=== PATIENT | male | born 1940 | race Caucasian/White ===

== ENCOUNTER 2017-07-05 06:34 | Inpatient (IN) | payer OTHER ==
[2017-07-04 10:44] VITALS: BMI 24.3
[2017-07-05] MEDS ORDERED: PROPOFOL 20 ML ONE (07:49)
[2017-07-05] MEDS ORDERED: MIDAZOLAM HCL 2 MG/2 ML SINGLE DOSE VIAL ONE (07:49)
[2017-07-05] MEDS ORDERED: LIDOCAINE HCL/PF 2% SDV 5ML VIAL ONE (07:52)
[2017-07-05] MEDS ORDERED: ceFAZolin SODIUM 1 GM VIAL ONE (08:14)
[2017-07-05] MEDS ORDERED: ceFAZolin SODIUM 1 GM VIAL IVPB ONE (08:17)
[2017-07-05] MEDS ORDERED: DEXAMETHASONE SOD PHOSPHATE 4 MG/1 ML VIAL ONE (08:17)
[2017-07-05] MEDS ORDERED: IBUPROFEN 800 MG/8 ML IJ IVPB PRN (08:47)
--- NOTE | 2017-07-05 08:52 | HP ---
History & Physical Update - History History: No Change - Physical Physical: No Change - Assessment Assessment: No Change - Plan Plan: No Change
[2017-07-05] MEDS ORDERED: DEXTROSE 5%-0.45% SALINE 1,000 ML IV SCH (09:00)
[2017-07-05] MEDS ORDERED: ONDANSETRON 4 MG/2 ML VIAL IVPUSH PRN (09:00)
[2017-07-05] MEDS ORDERED: PROMETHAZINE HCL 25 MG/1 ML VIAL IVPUSH PRN (09:00)
[2017-07-05] MEDS ORDERED: LACTATED RINGERS SOLUTION 1,000 ML IV SCH (09:00)
--- NOTE | 2017-07-05 09:25 | OP ---
DATE OF OPERATION: 07/05/2017 PREOPERATIVE DIAGNOSIS: Bladder tumor. POSTOPERATIVE DIAGNOSIS: Bladder tumor. PROCEDURES: Cystoscopy. Transurethral resection of bladder tumor, large left hemitrigone. ESTIMATED BLOOD LOSS: Minimal. ANESTHESIA: General. ANESTHESIOLOGIST: Naveen De Souza MD SURGEON: Claudy Becerra MD SPECIMEN: Bladder tumor. DRAIN: Andres catheter. PREOPERATIVE INDICATIONS: The patient is a 77-year-old male who presented with gross hematuria. He was found to have a large papillary-appearing tumor over the left hemitrigone. He comes to the OR for resection. OPERATION: The patient was brought to the OR and placed on the table in supine position, given general anesthesia and IV antibiotics, and placed in the modified lithotomy position. The groin was prepped and draped sterilely and a timeout was performed. A cystoscopy was performed. The urethra appeared to be normal. The prostate was very large, hyperemic and obstructive. The bladder had severe trabeculation throughout consistent with long-standing bladder outlet obstruction. Along the left hemitrigone, a large papillary-appearing tumor was seen. This was resected down to its base and the base was fulgurated. The bladder wall appeared to be thinned, but not perforated. Therefore, mitomycin was not given. Good hemostasis was achieved. The specimen was sent off for pathological diagnosis. The bladder was emptied with a Andres catheter which remained for postoperative drainage. Valeria [id number]
[2017-07-05] MEDS: ACETAMINOPHEN 1000 MG/100 ML VIAL (NON FORMULARY) IVPB ONE ×2 (09:45→18:04)
[2017-07-05] MEDS ORDERED: LISINOPRIL 20 MG TABLET (FP) PO ONE (16:35)
--- NOTE | 2017-07-05 16:38 | PN ---
Progress Note (short form) - Note Progress Note: patient in clot retention. Three way haines placed and CBI started. will observe overnight.
[2017-07-05] MEDS ORDERED: HYDROCHLOROTHIAZIDE 12.5 MG CAPSULE (FP) PO SCH (16:45)
[2017-07-05] MEDS: FINASTERIDE 5 MG TABLET (FP) PO SCH (18:03)
[2017-07-05 18:47] LABS: BASOPHIL 0.1 % (0-2.0)
[2017-07-05 18:51] LABS: MCH 29.9 pg (25.7-33.7); MCHC 33.9 g/dl (32.0-35.9); MEAN CELL VOLUME 88.2 fl (80-96); NEUTROPHILS 90.5 % (42.8-82.8); PLATELET COUNT 126 K/MM3 (134-434); RDW 14.3 % (11.9-15.9); WHITE BLOOD COUNT 16.3 K/mm3 (4.0-10.0)
[2017-07-05 19:25] LABS: ANION GAP 11 (8-16); CALCIUM 8.8 mg/dL (8.5-10.1); CO2 25 mmol/L (21-32); CREATININE 1.2 mg/dL (0.7-1.3); GLUCOSE,RANDOM 126 mg/dL (74-106)
--- NOTE | 2017-07-05 19:29 | RAPID ---
Physical Examination Vital Signs: Vital Signs Temperature 97.5 F L 07/05/17 10:08 Pulse Rate 90 07/05/17 13:22 Respiratory Rate 20 07/05/17 13:22 Blood Pressure 135/68 07/05/17 13:22 O2 Sat by Pulse Oximetry (%) 97 07/05/17 09:55 Constitutional: Yes: Calm Eyes: Yes: Conjunctiva Clear, EOM Intact, PERRL HENT: Yes: Atraumatic, Normocephalic. No: Pharyngeal Erythema, Rhinnorhea Neck: Yes: Supple, Trachea Midline. No: Lymphadenopathy, Tenderness Cardiovascular: Yes: Regular Rate and Rhythm, Tachycardia. No: Murmur Respiratory: Yes: Regular, CTA Bilaterally, On Venti-Mask. No: Accessory Muscle Use Gastrointestinal: Yes: Normal Bowel Sounds, Soft Renal/: Yes: Bladder Distention, Haines Present, Hematuria (in haines and at meatus) Extremities: No: Erythema Edema: No Peripheral Pulses WNL: Yes Peripheral Pulses: Left Radial: 2+, Right Radial: 2+, Left Doralis Pedis: 2+, Right Dorsalis Pedis: 2+ Neurological: Yes: Alert, Oriented, Cran Nerves II-XII Intact ...Motor Strength: LUE (5/5 handgrip and bicep flexion), LLE (5/5 hip/knee extension/plantar flexion), RUE (5/5 hand divisional human resources director, biceps flexion), RLE (5/5 hip/ knee extension/plantar flexion) Psychiatric: Yes: Alert, Oriented (to person,place,birthday,date,location, president,situation) Labs: CBC, BMP 07/05/17 18:18 07/05/17 18:18 Rapid Response - Rapid Response Assessment: 77 yr old man s/p TURP this morning. Prior to arrival: Pt was speaking with his , when she looked over his eyes rolled back and he slowly passed out, and she was unable to wake him up. Nurse was called who initiated RR, when assessed by Nurse Cafe Site Attendant (Nan), pt did not have a pulse, code 99 initiated, chest compressions were initiated and patient became responsive right away. On arrival: Pt was awake, alert, appropriately responsive to questions. denied chest pain, sob, difficulty breathing, palpitations, headache. No seizure-like activity. He felt sweaty. physical exam stated above. Recommendations/Interventions: Pt was given IVF bolus. Dr. Isaacs was called and request was made for medicine consult, cardiology consult and transfer to ICU. stat labs for cbc, bmp, trop, and ekg Primary Physician Notified: Claudy Becerra
[2017-07-05] MEDS: DEXTROSE 5%-0.45% SALINE 1,000 ML IV SCH (19:30)
[2017-07-05] MEDS ORDERED: ALPRAZolam 0.25 MG TABLET PO ONE (20:10)
--- NOTE | 2017-07-05 20:25 | CONSULT ---
Consultation: REQUESTING PROVIDER: Dr. Isaacs(urology) CONSULT REQUEST: We have been asked to medically evaluate this patient s/p RR and transfer to ICU. HISTORY OF PRESENT ILLNESS: 77 yr old man with HTN, HLD, BPH, s/p elective TURP due to episodes of veronica hematuria since 1 month. Procedure was uncomplicated, however pt had urinary retention post-procedure, CBI was initiated and he was admitted for further monitoring. A rapid response was initiated when pt became acutely unresponsive while talking to his . She said that they were talking and when she looked over him, had slowly closed his eyes and slumped his head. He did not answer to his name. Appears to be vaso-vagal in nature, as he had a repeat witnessed episode upon transfer to the ICU when there was an obstructing clot in the haines, once flushed, and pain relief provided, patient recovered without difficulty immediately (no post-ictal state) Pmhx: HTN, HLD, BPH Family hx: father to due to stroke at age 83, mother from dementia at age 97, younger sister(4 yrs younger) had a wedge resection of left lung due to nonmalignant carcinoid tumor Social: smoked 2-3cig/day for 1 yr, quit >40 yrs ago, socially drinks, denies drug use Surgical: basal cell carcinoma excised from left ear many years ago, has had a surgery in the past requiring general anesthesia without any adverse reaction. REVIEW OF SYSTEMS: CONSTITUTIONAL: Presemt: intentional weight loss of 3 lbs since february Absent: fever, chills, diaphoresis, generalized weakness, malaise, loss of appetite HEENT: Absent: rhinorrhea, nasal congestion, difficulty swallowing, mouth swelling, visual changes CARDIOVASCULAR: Absent: chest pain, syncope, palpitations, irregular heart rate, lightheadedness , peripheral edema RESPIRATORY: Absent: cough, shortness of breath, GASTROINTESTINAL: Absent: abdominal pain, abdominal distension, nausea, vomiting, diarrhea, constipation, melena, hematochezia GENITOURINARY: Present:genital pain Absent: dysuria, frequency, urgency, hesitancy, hematuria, flank pain MUSCULOSKELETAL: Absent: myalgia, arthralgia, joint swelling, back pain, neck pain SKIN: Absent: rash, itching, pallor ENDOCRINE: Absent: unexplained weight gain, unexplained weight loss, heat intolerance, cold intolerance NEUROLOGIC: Absent: headache, focal weakness or paresthesias, dizziness, seizure, mental status changes, bowel incontinence PHYSICAL EXAMINATION Vital Signs - 24 hr 07/05/17 07/05/17 07/05/17 06:53 08:57 09:10 Temperature 97.5 F L 97.7 F Pulse Rate 70 80 78 Respiratory 18 14 18 Rate Blood Pressure 160/83 148/66 142/71 O2 Sat by Pulse 99 97 99 Oximetry (%) 07/05/17 07/05/17 07/05/17 09:25 09:40 09:55 Temperature Pulse Rate 66 68 76 Respiratory 15 15 16 Rate Blood Pressure 133/52 118/60 130/59 O2 Sat by Pulse 97 98 97 Oximetry (%) 07/05/17 07/05/17 07/05/17 10:08 10:27 13:22 Temperature 97.5 F L Pulse Rate 78 74 90 Respiratory 18 20 20 Rate Blood Pressure 134/61 142/74 135/68 O2 Sat by Pulse Oximetry (%) 07/05/17 16:54 Temperature 98.2 F Pulse Rate 88 Respiratory 18 Rate Blood Pressure 145/72 O2 Sat by Pulse Oximetry (%) GENERAL: Awake, alert, and fully oriented, in no acute distress. HEAD: Normal with no signs of trauma. EYES: Pupils equal, round and reactive to light, extraocular movements intact, sclera anicteric, conjunctiva clear. No lid lag. EARS, NOSE, THROAT: Ears normal, nares patent, oropharynx clear without exudates. Moist mucous membranes. NECK: Normal range of motion, supple without lymphadenopathy, JVD, or masses. LUNGS: Breath sounds equal, clear to auscultation bilaterally. No wheezes, and no crackles. No accessory muscle use. HEART: Regular rate and rhythm, normal S1 and S2 without murmur, rub or gallop. ABDOMEN: Soft, nontender, not distended, normoactive bowel sounds, no guarding, no rebound, no masses. No hepatomegaly or splenomegaly. MUSCULOSKELETAL: Normal range of motion at all joints. No bony deformities or tenderness. No CVA tenderness. UPPER EXTREMITIES: 2+ radial pulses, warm, well-perfused. No cyanosis. No clubbing. Cap refill <2 seconds. No peripheral edema. LOWER EXTREMITIES: 2+ dorsalis pulses, warm, well-perfused. No calf tenderness. No peripheral edema. NEUROLOGICAL: Cranial nerves II-XII intact. Normal speech. PSYCHIATRIC: Cooperative. Good eye contact. Appropriate mood and affect. SKIN: Warm, dry, normal turgor, no rashes or lesions noted. : haines in place with scant blood at meatus, no penile lesions. Laboratory Results - last 24 hr 07/05/17 07/05/17 18:18 18:18 WBC 16.3 H RBC 4.25 Hgb 12.7 Hct 37.5 MCV 88.2 MCH 29.9 MCHC 33.9 RDW 14.3 Plt Count 126 L MPV 12.0 H Neutrophils % 90.5 H Lymphocytes % 5.2 L Monocytes % 4.2 Eosinophils % 0.0 Basophils % 0.1 Platelet Comment Mod giant plts RBC Morphology Appears normal Sodium 136 Potassium 3.7 Chloride 100 Carbon Dioxide 25 Anion Gap 11 BUN 20 H Creatinine 1.2 Random Glucose 126 H Calcium 8.8 Active Medications Generic Name Dose Route Start Last Admin Trade Name Freq PRN Reason Stop Dose Admin Fentanyl 50 mcg 07/05/17 09:00 Sublimaze Injection - IVPUSH 07/08/17 09:01 [id number] PRN PAIN Finasteride 5 mg 07/05/17 16:45 07/05/17 18:03 Proscar - PO 5 mg DAILY ZULEMA Administration Hydrochlorothiazide 12.5 mg 07/05/17 16:45 07/05/17 18:03 Hctz - PO 12.5 mg DAILY ZULEMA Administration Dextrose/Sodium Chloride 1,000 mls @ 125 mls/hr 07/05/17 09:00 07/05/17 18:04 D5-1/2ns - IV Not Given ASDIR ZULEMA Lactated Ringer's 1,000 mls @ 125 mls/hr 07/05/17 09:00 07/05/17 18:04 Lactated Ringers Solution IV Not Given ASDIR ZULEMA Ibuprofen 800 mg 07/05/17 08:47 07/05/17 09:10 Caldolor Injection - IVPB 800 mg Q8H PRN Administration PAIN OR FEVER Phenazopyridine HCl 100 mg 07/05/17 20:15 Pyridium - PO TID ZULEMA Solifenacin 5 mg 07/05/17 20:15 Vesicare - PO DAILY ZULEMA Tamsulosin HCl 0.4 mg 07/06/17 08:30 Flomax - PO DAILY@0830 [facility] Active Medications Finasteride (Proscar -) 5 mg PO DAILY [facility] Last Admin: 07/05/17 18:03 Dose: 5 mg Dextrose/Sodium Chloride (D5-1/2ns -) 1,000 mls @ 125 mls/hr IV ASDIR [facility] Last Admin: 07/05/17 19:30 Dose: 125 mls/hr Ibuprofen (Caldolor Injection -) 800 mg IVPB Q8H PRN PRN Reason: PAIN OR FEVER Last Admin: 07/05/17 09:10 Dose: 800 mg Phenazopyridine HCl (Pyridium -) 100 mg PO TID [facility] Last Admin: 07/06/17 05:53 Dose: 100 mg Solifenacin (Vesicare -) 5 mg PO DAILY [facility] Last Admin: 07/05/17 20:29 Dose: 5 mg Tamsulosin HCl (Flomax -) 0.4 mg PO DAILY@0830 [facility] ASSESSMENT/PLAN: 77 yr old man s/p TURP with post-procedure clot retention and 2 episodes of vaso -vagal syncope admitted to ICU for further monitoring. #Syncope- likely vasovagal due to pain/clot retention/hypovolemia(though BP is elevated), (no focal neurological deficits, no seizure-like activity, no post- ictal phase, no cardiac or pulmonary history) - IVF hydration - bi analyst to r/o arrhythmia/hypotension - trend trop to r/o ACS, thought less likely with no acute changes on EKG, cardio consult appreciated #DANA - likely pre-renal, continue IVF #HTN/tachycardia - hold home diuretics due to DANA, give metoprolol 25mg po if tachycardia(likely due to pain, treat pain first) continues #s/p TURP clot retention - care as per Dr. Isaacs, continue CBI - repeat labs in the am to r/o acute blood loss anemia, resolution of DANA and monitor leukocytosis(suspicious for reactive leucocytosis vs infectious) - pain control with pyridium 100mgp o tid, caldolor 800mg ivpb q8hr prn #BPH - flomax 0.4mg po daily and proscar 5mg po daily #DVT - pt with hematuria, scd's for now Diet: low sodium Dispo: We will continue to follow the patient. Thank you for this consultative opportunity. Visit type - Emergency Visit Emergency Visit: Yes Care time: The patient presented to the Emergency Department on the above date and was hospitalized for further evaluation of their emergent condition. - New Patient This patient is new to me today: Yes Date on this admission: 07/05/17 - Critical Care Critical Care patient: Yes Total Critical Care Time (in minutes): 31 Critical Care Statement: The care of this patient involved high complexity decision making to prevent further life threatening deterioration of the patient 's condition and/or to evaluate & treat vital organ system(s) failure or risk of failure.
[2017-07-05] MEDS: SOLIFENACIN SUCCINATE 5 MG TAB (FP) PO SCH (20:29)
[2017-07-05] MEDS: PHENAZOPYRIDINE HCL 100 MG TABLET (FP) PO SCH ×2 (20:35→21:52)
--- NOTE | 2017-07-05 20:52 | PN ---
Teaching Attending Note Name of Resident: aNfisa Otero ATTENDING PHYSICIAN STATEMENT I saw and evaluated the patient. I reviewed the resident's note and discussed the case with the resident. I agree with the resident's findings and plan as documented. SUBJECTIVE: 77 yo gentleman admitted following uncomplicated TURP performed this morning. Rapid Response called at approximately 1900 after witnessed syncopal episode while patient lying in bed. Pt. seemingly recovered shortly after episode as on arrival patient was answering questions appropriately. Primary physician notified and patient transferred to the ICU for closer monitoring on telemetry and medicine consulted for medical management. Pt. currently denying chest pain, SOB, palpitations, abdominal pain. reports pt. has had similar episodes in past. OBJECTIVE: - Vital Signs Temp: 97.8F BP: 164/98 HR: 108 RR: 20 spO2: 100% on 4L NC - Physical Examination General: Alert, oriented in NAD Neuro: CN grossly intact, DTR's +2/4 in upper and lower extremities, no gross motor or sensory deficits appreciated HEENT: No oropharyngeal lesions appreciated; pupils equal and reactive Neck: No JVD or Thyromegaly CV: Sinus tachycardia ; S1 and S2 Pulm: CTA anteriorly Abd: Soft, NTTP, ND, BS+ ; pulsatile wave appreciated G/U: Andres in place Ext: Nonedematous - Labs / Imaging BUN/Cr: 23/1.5 K+: 3.7 ; Na+ 135 H/H: 12.7/37.5 WBC: 16.3 w/ left shift Troponin Pending - EKG Sinus Tachycardia; No evidence of ischemia ASSESSMENT: Syncope - most consistent with vasovagal etiology Neutrophilic Leukocytosis - presumably reactive in setting of recent procedure and no signs of active infection DANA Hyponatremia - Presumably hypovolemic at this time Bladder Mass s/p TURP Essential HTN PLAN: Transferred to ICU ; Telemetry monitoring Continue IVF hydration with NS overnight If BP continues to be elevated, start Metoprolol PO Obtain EKG and compare to baseline De-escalate supplemental O2 Repeat CBC, CMP in AM to monitor leukocytosis, electrolytes, and DANA F/U pending troponin
--- NOTE | 2017-07-05 21:03 | CONSULT ---
Consult Consult Specialty:: PULMONARY/CRITICAL CARE Referred by:: lCaudy Becerra Reason for Consultation:: syncope - History of Present Illness Chief Complaint: syncope History of Present Illness: Briefly, 77 y/o male with bladder CA, BPH, HTN and HLD presented to the hospital for elective TURBT. Case was uncomplicated, had GA via LMA and only under GA for 1hr. He was d/c from the PACU to the floor. A rapid response was called for syncope, he was found unresponsive and thought to be pulseless. Chest compressions were started, but he quickly regained a mental status, he was probably never pulseless. He was not on tele at the time, so rhythm and HR are unknown. He was completely awake, alert and oriented with no complaints, VS were stable and 12lead EKG was normal. He was admitted to the ICU. - History Source History Provided By: Patient, Medical Record Limitations to Obtaining History: No Limitations - Past Medical History Cardio/Vascular: Yes: HTN, Hyperlipdemia Renal/: Yes: BPH, Cancer, Hematuria Heme/Onc: Yes: Cancer - Past Surgical History Additional Surgical History: Lumbar fusion - Alcohol/Substance Use Hx Alcohol Use: Yes (OCCAS 1-2/WEEK) - Smoking History Smoking history: Never smoked Have you smoked in the past 12 months: No Home Medications - Allergies Allergies/Adverse Reactions: Allergies Allergy/AdvReac Type Severity Reaction Status Date / Time No Known Drug Allergies Allergy Verified 07/05/17 07:04 - Home Medications Home Medications: Ambulatory Orders Finasteride 5 mg PO DAILY 07/04/17 Lisinopril/Hydrochlorothiazide [Lisinopril-Hctz 20-12.5 mg Tab] 1 each PO DAILY 07/04/17 Multivitamin/Iron/Folic Acid [Centrum Adults Tablet] 1 each PO Q48H 07/04/17 Simvastatin 40 mg PO HS 07/04/17 Tamsulosin HCl [Flomax] 0.4 mg PO HS 07/04/17 Family Disease History - Family Disease History Family History: Unremarkable Review of Systems - Review of Systems Constitutional: reports: No Symptoms Eyes: reports: No Symptoms HENT: reports: No Symptoms Neck: reports: No Symptoms Cardiovascular: reports: No Symptoms Respiratory: reports: No Symptoms Gastrointestinal: reports: No Symptoms Genitourinary: reports: Hematuria Breasts: reports: No Symptoms Reported Musculoskeletal: reports: No Symptoms Integumentary: reports: No Symptoms Neurological: reports: No Symptoms Endocrine: reports: No Symptoms Hematology/Lymphatic: reports: No Symptoms Psychiatric: reports: No Symptoms Physical Exam Vital Signs: Vital Signs Temperature 97.8 F 07/05/17 20:00 Pulse Rate 108 H 07/05/17 20:00 Respiratory Rate 20 07/05/17 20:00 Blood Pressure 164/86 07/05/17 20:00 O2 Sat by Pulse Oximetry (%) 100 07/05/17 20:47 Constitutional: Yes: Well Nourished Eyes: Yes: WNL HENT: Yes: WNL Neck: Yes: WNL Cardiovascular: Yes: WNL Respiratory: Yes: WNL Gastrointestinal: Yes: WNL Musculoskeletal: Yes: WNL Extremities: Yes: WNL Edema: No Labs: CBC, BMP 07/05/17 18:18 Problem List - Problems (1) Syncope Code(s): R55 - SYNCOPE AND COLLAPSE (2) HTN (hypertension) Code(s): I10 - ESSENTIAL (PRIMARY) HYPERTENSION (3) BPH (benign prostatic hyperplasia) Code(s): N40.0 - BENIGN PROSTATIC HYPERPLASIA WITHOUT LOWER URINRY TRACT SYMP (4) Bladder cancer Code(s): C67.9 - MALIGNANT NEOPLASM OF BLADDER, UNSPECIFIED (5) Hematuria Code(s): R31.9 - HEMATURIA, UNSPECIFIED Assessment/Plan Bladder CA Hematuria BPH HTN HLD Syncope --> ?vaso-vagal -Tele monitoring -Cardiac workup -Check Sodium --> ?TURP syndrome -Andres per -Restart home meds Transfer to tele in the morning if remains stable and w/u unrevealing Thank you for this interesting consult Brock Cho Pulm/Critical Care ASSOCIATE ENGINEER CCT 45min
[2017-07-05 21:24] LABS: ALBUMIN 3.3 g/dl (3.4-5.0); ANION GAP 13 (8-16); CALCIUM 9.1 mg/dL (8.5-10.1); CO2 22 mmol/L (21-32); CREATININE 1.5 mg/dL (0.7-1.3); GLUCOSE,RANDOM 158 mg/dL (74-106); SGOT/AST 14 U/L (15-37); SGPT/ALT 18 U/L (12-78)
[2017-07-05 21:26] LABS: ALK PHOS 85 U/L (45-117); BILIRUBIN,TOTAL 0.7 mg/dL (0.2-1.0); TOT PROT 5.9 g/dl (6.4-8.2)
[2017-07-05 21:36] LABS: TROPONIN I 0.02 ng/ml (0.00-0.05)
[2017-07-06 00:18] LABS: MCH 29.7 pg (25.7-33.7); MEAN PLT VOLUME 11.3 fl (7.5-11.1); PLATELET COUNT 109 K/MM3 (134-434); RDW 14.3 % (11.9-15.9); WHITE BLOOD COUNT 17.7 K/mm3 (4.0-10.0)
[2017-07-06 00:45] LABS: TROPONIN I 0.03 ng/ml (0.00-0.05)
[2017-07-06] MEDS: PHENAZOPYRIDINE HCL 100 MG TABLET (FP) PO SCH ×3 (05:53→21:57)
[2017-07-06 06:19] LABS: BASOPHIL 0.2 % (0-2.0); EOSINOPHIL 0.1 % (0-4.5); MCH 30.1 pg (25.7-33.7); MCHC 33.6 g/dl (32.0-35.9); MEAN CELL VOLUME 89.5 fl (80-96); MEAN PLT VOLUME 11.8 fl (7.5-11.1); NEUTROPHILS 78.5 % (42.8-82.8); PLATELET COUNT 116 K/MM3 (134-434); RDW 14.4 % (11.9-15.9); WHITE BLOOD COUNT 13.1 K/mm3 (4.0-10.0)
[2017-07-06 06:50] LABS: ANION GAP 9 (8-16); CALCIUM 8.3 mg/dL (8.5-10.1); CO2 28 mmol/L (21-32); CREATININE 1.5 mg/dL (0.7-1.3); GLUCOSE,RANDOM 133 mg/dL (74-106)
[2017-07-06 07:11] LABS: TROPONIN I 0.02 ng/ml (0.00-0.05)
--- NOTE | 2017-07-06 08:16 | CONSULT ---
Consultation: REQUESTING PROVIDER: Mariam CONSULT REQUEST: We have been asked to medically evaluate this patient for syncope. HISTORY OF PRESENT ILLNESS: 77 y/o male with bladder CA, BPH, HTN and HLD presented to the hospital for elective TURP. currently pt continues to have intermittent bladder spasms assoc with pain but is controlled on medication and requesting to go home. states he recalls the events that happened on the floor and admits to experiencing bladder spasms and significant pain prior to passing out. states he had similar episode about 8 years ago after intentional weight loss and he was dehydrated and took his antihypertensives. no workup was done at that time. had stress test about 6-8 years ago for "baseline" testing. does not recall 2nd episode of LOC in the MICU which as per RN lasted several seconds and found to have a large blood clot stuck at the meatus of the penis that when was flushed his symptoms improved. denies CP, SOB, fever, chills, cough, dizzyness, unusual smells or tastes, tonic/clonic movements. REVIEW OF SYSTEMS: CONSTITUTIONAL: Absent: fever, chills, diaphoresis, generalized weakness, malaise, loss of appetite, weight change HEENT: Absent: rhinorrhea, nasal congestion, throat pain, throat swelling, difficulty swallowing, mouth swelling, ear pain, eye pain, visual changes CARDIOVASCULAR: Absent: chest pain, syncope, palpitations, irregular heart rate, lightheadedness , peripheral edema RESPIRATORY: Absent: cough, shortness of breath, dyspnea with exertion, orthopnea, wheezing, stridor, hemoptysis GASTROINTESTINAL: Absent: abdominal pain, abdominal distension, nausea, vomiting, diarrhea, constipation, melena, hematochezia GENITOURINARY: hematuria, Absent: dysuria, frequency, urgency, hesitancy, flank pain, genital pain MUSCULOSKELETAL: Absent: myalgia, arthralgia, joint swelling, back pain, neck pain SKIN: Absent: rash, itching, pallor HEMATOLOGIC/IMMUNOLOGIC: Absent: easy bleeding, easy bruising, lymphadenopathy, frequent infections ENDOCRINE: Absent: unexplained weight gain, unexplained weight loss, heat intolerance, cold intolerance NEUROLOGIC: Absent: headache, focal weakness or paresthesias, dizziness, unsteady gait, seizure, mental status changes, bladder or bowel incontinence PSYCHIATRIC: Absent: anxiety, depression, suicidal or homicidal ideation, hallucinations. PHYSICAL EXAMINATION Vital Signs - 24 hr 08/11/17 08/11/17 08/11/17 08:57 09:10 09:25 Temperature 97.7 F Pulse Rate 80 78 66 Respiratory 14 18 15 Rate Blood Pressure 148/66 142/71 133/52 O2 Sat by Pulse 97 99 97 Oximetry (%) 07/05/17 07/05/17 07/05/17 09:40 09:55 10:08 Temperature 97.5 F L Pulse Rate 68 76 78 Respiratory 15 16 18 Rate Blood Pressure 118/60 130/59 134/61 O2 Sat by Pulse 98 97 Oximetry (%) 07/05/17 07/05/17 07/05/17 10:27 13:22 16:54 Temperature 98.2 F Pulse Rate 74 90 88 Respiratory 20 20 18 Rate Blood Pressure 142/74 135/68 145/72 O2 Sat by Pulse Oximetry (%) 07/05/17 07/05/17 07/05/17 20:00 20:47 22:00 Temperature 97.8 F Pulse Rate 108 H 80 Respiratory 20 20 Rate Blood Pressure 164/86 151/69 O2 Sat by Pulse 100 Oximetry (%) 07/06/17 07/06/17 07/06/17 00:00 02:00 04:00 Temperature 98 F Pulse Rate 74 75 78 Respiratory 20 20 20 Rate Blood Pressure 119/56 132/67 134/80 O2 Sat by Pulse Oximetry (%) 07/06/17 06:00 Temperature 98.7 F Pulse Rate 82 Respiratory 20 Rate Blood Pressure 148/68 O2 Sat by Pulse Oximetry (%) GENERAL: Awake, alert, and fully oriented, in no acute distress. HEAD: Normal with no signs of trauma. EYES: Pupils equal, round and reactive to light, extraocular movements intact, sclera anicteric, conjunctiva clear. No lid lag. EARS, NOSE, THROAT: Ears normal, nares patent, oropharynx clear without exudates. Moist mucous membranes. NECK: Normal range of motion, supple without lymphadenopathy, JVD, or masses. LUNGS: Breath sounds equal, clear to auscultation bilaterally. No wheezes, and no crackles. No accessory muscle use. HEART: Regular rate and rhythm, normal S1 and S2 without murmur, rub or gallop. no carotid bruit ABDOMEN: +suprapubic tenderness Soft, nontender, not distended, normoactive bowel sounds, no guarding, no rebound, no masses. No hepatomegaly or splenomegaly. gross hematuria noted in haines MUSCULOSKELETAL: Normal range of motion at all joints. No bony deformities or tenderness. No CVA tenderness. UPPER EXTREMITIES: 2+ pulses, warm, well-perfused. No cyanosis. No clubbing. Cap refill <2 seconds. No peripheral edema. LOWER EXTREMITIES: 2+ pulses, warm, well-perfused. No calf tenderness. No peripheral edema. NEUROLOGICAL: Cranial nerves II-XII intact. Normal speech. Normal gait. PSYCHIATRIC: Cooperative. Good eye contact. Appropriate mood and affect. SKIN: Warm, dry, normal turgor, no rashes or lesions noted. Laboratory Results - last 24 hr 07/05/17 07/05/17 07/05/17 18:18 18:18 20:10 WBC 16.3 H RBC 4.25 Hgb 12.7 Hct 37.5 MCV 88.2 MCH 29.9 MCHC 33.9 RDW 14.3 Plt Count 126 L MPV 12.0 H Neutrophils % 90.5 H Lymphocytes % 5.2 L Monocytes % 4.2 Eosinophils % 0.0 Basophils % 0.1 Platelet Comment Mod giant plts RBC Morphology Appears normal Sodium 136 135 L Potassium 3.7 3.7 Chloride 100 100 Carbon Dioxide 25 22 Anion Gap 11 13 BUN 20 H 23 H Creatinine 1.2 1.5 H D Creat Clearance w eGFR 45.14 Random Glucose 126 H 158 H D Calcium 8.8 9.1 Total Bilirubin 0.7 AST 14 L ALT 18 Alkaline Phosphatase 85 Creatine Kinase Troponin I Total Protein 5.9 L Albumin 3.3 L 07/05/17 07/06/17 07/06/17 20:20 00:00 00:00 WBC 17.7 H RBC 3.66 L Hgb 10.9 L D Hct 32.9 L MCV 90.0 MCH 29.7 MCHC 33.0 RDW 14.3 Plt Count 109 L MPV 11.3 H Neutrophils % Lymphocytes % Monocytes % Eosinophils % Basophils % Platelet Comment RBC Morphology Sodium Potassium Chloride Carbon Dioxide Anion Gap BUN Creatinine Creat Clearance w eGFR Random Glucose Calcium Total Bilirubin AST ALT Alkaline Phosphatase Creatine Kinase 67 70 Troponin I 0.02 0.03 D Total Protein Albumin 07/06/17 07/06/17 07/06/17 05:35 05:35 06:00 WBC 13.1 H RBC 3.63 L Hgb 10.9 L Hct 32.5 L MCV 89.5 MCH 30.1 MCHC 33.6 RDW 14.4 Plt Count 116 L MPV 11.8 H Neutrophils % 78.5 Lymphocytes % 13.5 D Monocytes % 7.7 D Eosinophils % 0.1 D Basophils % 0.2 Platelet Comment RBC Morphology Sodium 136 Potassium 4.6 D Chloride 99 Carbon Dioxide 28 D Anion Gap 9 BUN 23 H Creatinine 1.5 H Creat Clearance w eGFR Random Glucose 133 H Calcium 8.3 L Total Bilirubin AST ALT Alkaline Phosphatase Creatine Kinase 67 Troponin I 0.02 D Total Protein Albumin Active Medications Generic Name Dose Route Start Last Admin Trade Name Freq PRN Reason Stop Dose Admin Finasteride 5 mg 07/05/17 16:45 07/05/17 18:03 Proscar - PO 5 mg DAILY ZULEMA Administration Dextrose/Sodium Chloride 1,000 mls @ 125 mls/hr 07/05/17 19:30 07/05/17 19:30 D5-1/2ns - IV 125 mls/hr ASDIR ZULEMA Administration Ibuprofen 800 mg 07/05/17 08:47 07/05/17 09:10 Caldolor Injection - IVPB 800 mg Q8H PRN Administration PAIN OR FEVER Phenazopyridine HCl 100 mg 07/05/17 20:15 07/06/17 05:53 Pyridium - PO 100 mg TID ZULEMA Administration Solifenacin 5 mg 07/05/17 20:15 07/05/17 20:29 Vesicare - PO 5 mg DAILY ZULEMA Administration Tamsulosin HCl 0.4 mg 07/06/17 08:30 Flomax - PO DAILY@0830 [facility] ASSESSMENT/PLAN: 77 y/o male with bladder CA, BPH, HTN and HLD presented to the hospital for elective TURP with [employer] called on the floor due to unresponsiveness and concern for loss of pulse and code 99 initiated however terminated quickly as pt regained consciousness 1. LOC- likely vasovagal syncope in setting of pain and urinary urgency. 2 episodes (1 on the floor and 1 in MICU). both related to pain and urinary symptoms. unlikely cardiac in origin. EKG NSR, no abnormal rhythms noted on court monitor. would recommend echo to further evaluate for valve abnormality but low suspicion. carotid doppler to complete syncope workup 2. Acute blood loss anemia- likely due to procedure with veronica hematuria noted in the haines. as per RN flushing clear at this point. Hgb remains stable. will cont to trend. no indication for txn at this time 3. DANA-likley due to procedure vs possible episode of hypotension during event. hold ACEI. monitor 4. HTN- controlled. hold oral antihypertensives at this time. will re-start if needed to control 5. bladder ca s/p TURP- management per urology. on flomax, proscar, phenazopyridine 6. DVT ppx- hold in setting of bleeding Dispo: We will continue to follow the patient. Thank you for this consultative opportunity. Visit type - Emergency Visit Emergency Visit: No - New Patient This patient is new to me today: Yes Date on this admission: 07/06/17 - Critical Care Critical Care patient: Yes Total Critical Care Time (in minutes): 40 Critical Care Statement: The care of this patient involved high complexity decision making to prevent further life threatening deterioration of the patient 's condition and/or to evaluate & treat vital organ system(s) failure or risk of failure.
[2017-07-06] MEDS ORDERED: PT OWN MED DRAWER 7, Y5N ONE (09:22)
[2017-07-06] MEDS: FINASTERIDE 5 MG TABLET (FP) PO SCH (09:23)
[2017-07-06] MEDS: TAMSULOSIN HCL 0.4 MG CAP.ER.24H (FP) PO SCH (09:24)
[2017-07-06] MEDS: SOLIFENACIN SUCCINATE 5 MG TAB (FP) PO SCH (09:24)
--- NOTE | 2017-07-06 09:24 | CONS ---
CARDIOLOGY CONSULTATION DATE OF CONSULTATION: 07/05/2017 TIME OF CONSULTATION: 09:10 p.m. to 10 p.m. REQUESTING PHYSICIAN: Claudy Becerra MD LOCATION: CCU. 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 The pain and distention continued. He developed diaphoresis and had loss of consciousness and he felt as if he had a mild seizure and a code was called. He was later transferred to the CCU where he continued to have bladder spasms and excruciating pain. Patient has history of hypertension and hypercholesterolemia. There is no history of chest pain or discomfort either at rest or with exertion. No exertional dyspnea, paroxysmal nocturnal dyspnea or orthopnea. No history of palpitations. No history of lightheadedness, dizziness, or syncope prior to admission. PAST HISTORY: As mentioned in the history of present illness. SURGICAL HISTORY: No previous surgeries were reported. SOCIAL HISTORY: Retired, , has 2 children. Never smoked on a regular basis and has a cup of coffee. FAMILY HISTORY: Father of a cerebrovascular accident, apparently was hypertensive. Mother in her late 90s, partly related to dementia. MEDICATIONS: Prior to admission: 1. Lisinopril 20 mg p.o. daily. 2. Simvastatin 20 mg p.o. daily. 3. Flomax 0.4 mg p.o. daily. Current medications: 1. Flomax 0.4 mg p.o. daily. 2. Pyridium 100 mg p.o. t.i.d. 3. VESIcare 5 mg p.o. daily. 4. Ibuprofen 800 mg IV q.8 hours p.r.n. 5. Proscar 5 mg p.o. daily. 6. Hydrochlorothiazide 12.5 mg p.o. daily. REVIEW OF SYSTEMS: Constitutional: No history of chills, fever, or night sweats. No history of unintentional weight loss. HEENT: No history of headaches, diplopia, blurred vison. No history of epistaxis, hoarseness, tinnitus, or deafness reported. Cardiovascular: See history of present illness. No history of chest pain or discomfort. Respiratory: No history of cough, expectoration, or hemoptysis. No history of tuberculosis. Gastrointestinal: No history of nausea, vomiting, melena, or hematemesis. No history of abdominal pain or discomfort prior to this current episode. No history of change in bowel habits. Neurological: See history of present illness. Musculoskeletal: Denies having any myalgias or arthralgias. Endocrine: No history of polyuria or polydipsia. No history of intolerance to cold or warm weather. Hematological: See history of present illness. No previous history of ecchymosis or anemia. Lymphatics: No history of lymphadenopathy. PHYSICAL EXAMINATION: General: A 77-year-old gentleman, was clammy, diaphoretic, was in severe pain. Vital Signs: Blood pressure 164/86 mmHg. Pulse was 108 beats per minute and regular. Respirations were 20 per minute. Temperature was 97.8 degrees Fahrenheit. Neck: Supple. No jugular venous distention. Carotids were 2+. Upstrokes were normal. No bruits were heard, and no thyromegaly was present. Heart: PMI was in the 5th intercostal space. No heaves or thrills. S1 and S2 were normal. No murmur or gallops were heard. Lungs: Clear on auscultation. Abdomen: Urinary bladder was distended and firm. There was tenderness over the hypogastrium. No hepatosplenomegaly or palpable masses were felt. Bowel sounds were present. Extremities: No calf tenderness or dependent edema. Pulses were equal. ECG: Sinus tachycardia; right axis deviation; nondiagnostic Q waves in II, III, aVF, V5, and V6; nonspecific ST and T-wave abnormalities. No previous ECGs available for comparison. LABORATORY DATA: WBC count 16,300, hemoglobin 12.7 g/dL, platelet count 126,000. Neutrophils were 90.5%, lymphocytes 5.2%, giant platelets. Chemistry: Sodium 135, potassium 3.7, chloride 100, CO2 of 22 mmol/L, BUN 23, creatinine 1.5 mg/dL, random glucose 158 mg/dL. Troponin was 0.2. IMPRESSION: 1. Syncope, etiology: A. Vasovagal precipitated by pain and bladder distention. B. Secondary to Flomax. 2. Distended urinary bladder secondary to bladder clots. 3. Severe abdominal pain secondary to number 2. 4. History of hypertension. 5. Hypercholesterolemia. 6. Status post bladder tumor resection. 7. History of gross hematuria. 8. Renal insufficiency. RECOMMENDATIONS: 1. Bladder irrigation (done), large clots dislodged. 2. Follow up ECG and cardiac enzymes. 3. Close followup of blood pressure. 4. Hydrochlorothiazide could be discontinued in view of underlying renal insufficiency. 5. Follow up CBC and basic metabolic profile. PROGNOSIS: Guarded. Thank you for your referral. Yours sincerely, ALYSE CRAIG M.D. [id number]
--- NOTE | 2017-07-06 09:50 | PN ---
Progress Note (short form) - Note Progress Note: Patient seen and examined in the ICU. Awake and alert. No acute events overnight. No CP or SOB. Intake & Output 07/03/17 07/04/17 07/05/17 07/06/17 23:59 23:59 23:59 23:59 Intake Total 40955 8625 Output Total 81161 8600 Balance 1625 25 Weight 160 lb Last Vital Signs Temp Pulse Resp BP Pulse Ox 98.7 F 82 20 148/68 100 07/06/17 06:00 07/06/17 06:00 07/06/17 06:00 07/06/17 06:00 07/05/17 20:47 Active Medications Finasteride (Proscar -) 5 mg PO DAILY [facility] Last Admin: 07/06/17 09:23 Dose: 5 mg Dextrose/Sodium Chloride (D5-1/2ns -) 1,000 mls @ 125 mls/hr IV ASDIR [facility] Last Admin: 07/05/17 19:30 Dose: 125 mls/hr Ibuprofen (Caldolor Injection -) 800 mg IVPB Q8H PRN PRN Reason: PAIN OR FEVER Last Admin: 07/05/17 09:10 Dose: 800 mg Phenazopyridine HCl (Pyridium -) 100 mg PO TID [facility] Last Admin: 07/06/17 05:53 Dose: 100 mg Solifenacin (Vesicare -) 5 mg PO DAILY [facility] Last Admin: 07/06/17 09:24 Dose: 5 mg Tamsulosin HCl (Flomax -) 0.4 mg PO DAILY@0830 [facility] Last Admin: 07/06/17 09:24 Dose: 0.4 mg Constitutional: Yes: Awake and alert, NAD Eyes: Yes: WNL HENT: Yes: WNL Neck: Yes: WNL Cardiovascular: Yes: WNL Respiratory: Yes: WNL Gastrointestinal: Yes: WNL Musculoskeletal: Yes: WNL Extremities: Yes: WNL Edema: No Labs: Laboratory Results - last 24 hr 07/05/17 07/05/17 07/05/17 18:18 18:18 20:10 WBC 16.3 H RBC 4.25 Hgb 12.7 Hct 37.5 MCV 88.2 MCH 29.9 MCHC 33.9 RDW 14.3 Plt Count 126 L MPV 12.0 H Neutrophils % 90.5 H Lymphocytes % 5.2 L Monocytes % 4.2 Eosinophils % 0.0 Basophils % 0.1 Platelet Comment Mod giant plts RBC Morphology Appears normal Sodium 136 135 L Potassium 3.7 3.7 Chloride 100 100 Carbon Dioxide 25 22 Anion Gap 11 13 BUN 20 H 23 H Creatinine 1.2 1.5 H D Creat Clearance w eGFR 45.14 Random Glucose 126 H 158 H D Calcium 8.8 9.1 Total Bilirubin 0.7 AST 14 L ALT 18 Alkaline Phosphatase 85 Creatine Kinase Troponin I Total Protein 5.9 L Albumin 3.3 L 07/05/17 07/06/17 07/06/17 20:20 00:00 00:00 WBC 17.7 H RBC 3.66 L Hgb 10.9 L D Hct 32.9 L MCV 90.0 MCH 29.7 MCHC 33.0 RDW 14.3 Plt Count 109 L MPV 11.3 H Neutrophils % Lymphocytes % Monocytes % Eosinophils % Basophils % Platelet Comment RBC Morphology Sodium Potassium Chloride Carbon Dioxide Anion Gap BUN Creatinine Creat Clearance w eGFR Random Glucose Calcium Total Bilirubin AST ALT Alkaline Phosphatase Creatine Kinase 67 70 Troponin I 0.02 0.03 D Total Protein Albumin 07/06/17 07/06/17 07/06/17 05:35 05:35 06:00 WBC 13.1 H RBC 3.63 L Hgb 10.9 L Hct 32.5 L MCV 89.5 MCH 30.1 MCHC 33.6 RDW 14.4 Plt Count 116 L MPV 11.8 H Neutrophils % 78.5 Lymphocytes % 13.5 D Monocytes % 7.7 D Eosinophils % 0.1 D Basophils % 0.2 Platelet Comment RBC Morphology Sodium 136 Potassium 4.6 D Chloride 99 Carbon Dioxide 28 D Anion Gap 9 BUN 23 H Creatinine 1.5 H Creat Clearance w eGFR Random Glucose 133 H Calcium 8.3 L Total Bilirubin AST ALT Alkaline Phosphatase Creatine Kinase 67 Troponin I 0.02 D Total Protein Albumin Problem List - Problems (1) Syncope Code(s): R55 - SYNCOPE AND COLLAPSE (2) HTN (hypertension) Code(s): I10 - ESSENTIAL (PRIMARY) HYPERTENSION (3) BPH (benign prostatic hyperplasia) Code(s): N40.0 - BENIGN PROSTATIC HYPERPLASIA WITHOUT LOWER URINRY TRACT SYMP (4) Bladder cancer Code(s): C67.9 - MALIGNANT NEOPLASM OF BLADDER, UNSPECIFIED (5) Hematuria Code(s): R31.9 - HEMATURIA, UNSPECIFIED Assessment/Plan Bladder CA Hematuria BPH HTN HLD Syncope --> ?vaso-vagal OOB to chair Noted cardiology consult was called Andres per Home meds PO as tolerated Dr Orozco
--- NOTE | 2017-07-06 11:00 | PN ---
Progress Note (short form) - Note Progress Note: events overnight noted likely vasovagal episode. CBI is clearing but still tinged today, abd soft H/H is now stable Imp- continue CBI ICU today cardiology input appreciated
--- NOTE | 2017-07-06 13:18 | EKG ---
Test Reason : Blood Pressure : / mmHG Vent. Rate : 080 BPM Atrial Rate : 080 BPM P-R Int : 156 ms QRS Dur : 090 ms QT Int : 350 ms P-R-T Axes : 063 058 035 degrees QTc Int : 403 ms NORMAL SINUS RHYTHM NONSPECIFIC T WAVE ABNORMALITY ABNORMAL ECG WHEN COMPARED WITH ECG OF 05-JUL-2017 20:10, NONSPECIFIC T WAVE ABNORMALITY, WORSE IN INFERIOR LEADS NONSPECIFIC T WAVE ABNORMALITY NOW EVIDENT IN LATERAL LEADS QT HAS SHORTENED CLINICAL CORRELATION IS RECOMMENDED Confirmed by PATRICIA SU, GEOFF ([id number]) on 07/06/2017 1:17:41 PM Referred By: Claudy Becerra Confirmed By:GEOFF GOMEZ MD
--- NOTE | 2017-07-06 13:27 | EKG ---
Test Reason : Blood Pressure : / mmHG Vent. Rate : 102 BPM Atrial Rate : 102 BPM P-R Int : 156 ms QRS Dur : 090 ms QT Int : 392 ms P-R-T Axes : 051 061 040 degrees QTc Int : 510 ms SINUS TACHYCARDIA OTHERWISE NORMAL ECG NO PREVIOUS ECGS AVAILABLE Confirmed by PATRICIA SU, GEOFF ([id number]) on 07/06/2017 1:27:01 PM Referred By: Claudy Becerra Confirmed By:GEOFF GOMEZ MD
[2017-07-06] MEDS: ACETAMINOPHEN 1000 MG/100 ML VIAL (NON FORMULARY) IVPB SCH ×2 (15:52→21:57)
--- NOTE | 2017-07-06 17:48 | PN ---
Progress Note (short form) - Note Progress Note: S: 77 year old male,known case of hypertension,hyperchplesterolemia and bladder tumor developed posr operative lower abdominal pain and spasms folowed by diaphoresis and syncope and hypotension,foundto have an occluded haines catheter due to ablood clot and flow was resumed after flushing.No chest pain or discomfort,no SOB.Still has hematuria. Active Medications Acetaminophen (Ofirmev Injection -) 1,000 mg IVPB Q6H [facility] Last Admin: 07/06/17 15:52 Dose: 1,000 mg Finasteride (Proscar -) 5 mg PO DAILY [facility] Last Admin: 07/06/17 09:23 Dose: 5 mg Dextrose/Sodium Chloride (D5-1/2ns -) 1,000 mls @ 125 mls/hr IV ASDIR [facility] Last Admin: 07/05/17 19:30 Dose: 125 mls/hr Ibuprofen (Caldolor Injection -) 800 mg IVPB Q8H PRN PRN Reason: PAIN OR FEVER Last Admin: 07/05/17 09:10 Dose: 800 mg Phenazopyridine HCl (Pyridium -) 100 mg PO TID [facility] Last Admin: 07/06/17 14:30 Dose: 100 mg Solifenacin (Vesicare -) 5 mg PO DAILY [facility] Last Admin: 07/06/17 09:24 Dose: 5 mg Tamsulosin HCl (Flomax -) 0.4 mg PO DAILY@0830 [facility] Last Admin: 07/06/17 09:24 Dose: 0.4 mg O:77 year old male was no acute distress,no pallor,cyanosisor jaundice. Vital Signs - 8 hr 07/06/17 07/06/17 07/06/17 10:00 12:00 14:00 Temperature 98.4 F 98.3 F Pulse Rate 86 88 90 Respiratory 20 21 22 Rate Blood Pressure 130/55 109/56 125/60 07/06/17 16:00 Temperature Pulse Rate 100 H Respiratory 18 Rate Blood Pressure 114/45 NECK:Supple,no JVD,carotids are 2+ and equal,no bruits. HEART: PMI was in 5th ICS,no heaves or thrills.S1&S2 were normal.No murmur or gallops heard. LUNGS: Clear on auscultation. ABDOMEN:Soft nontender,no organomegaly,mild distension of the urinary bladder. EXTREMITIES:No calf tenderness or calf tenderness. CBC, BMP 07/06/17 05:35 07/06/17 05:35 Troponin, BNP 07/05/17 07/06/17 07/06/17 20:20 00:00 06:00 Troponin I 0.02 0.03 D 0.02 D EC07-06-17 NSR, nonspecific st-t abnormalities.Compared to ECG of 07-05-17.Decrease in heart rate,appearance of st-t changes A: 1.Syncope secondary to vasovagal response related to severe pain. 2.Recent bladder tumor resection with post op. bleeding. 3.H/O of hypertension. 4.Hypercholesterolemia. 5. Anemia. 6. Renal insufficency. P: 1.Close follow up of CBC and BMP. 2.Increase ambulation provided no contraindication. 3. follow up ECG.
[2017-07-06] MEDS: DEXTROSE 5%-0.45% SALINE 1,000 ML IV SCH (21:58)
[2017-07-07] MEDS: ACETAMINOPHEN 1000 MG/100 ML VIAL (NON FORMULARY) IVPB SCH ×3 (03:01→16:08)
[2017-07-07] MEDS: PHENAZOPYRIDINE HCL 100 MG TABLET (FP) PO SCH ×2 (05:19→14:16)
[2017-07-07 06:58] LABS: ANION GAP 9 (8-16); CALCIUM 8.5 mg/dL (8.5-10.1); CO2 32 mmol/L (21-32); GLUCOSE,RANDOM 89 mg/dL (74-106)
[2017-07-07 07:33] LABS: MCHC 33.5 g/dl (32.0-35.9); MEAN CELL VOLUME 89.6 fl (80-96); MEAN PLT VOLUME 11.6 fl (7.5-11.1); PLATELET COUNT 89 K/MM3 (134-434); RDW 14.6 % (11.9-15.9); WHITE BLOOD COUNT 7.8 K/mm3 (4.0-10.0)
--- NOTE | 2017-07-07 08:14 | PN ---
Progress Note (short form) - Note Progress Note: continues to have bladder spasms which are relieved with flushing of the catheter. catheter continues to be flushed with many small clots. denies CP, SOB , palpitations, LOC, lightheadedness, N/V/C/D Current Medications Generic Name Dose Route Start Last Admin Trade Name Freq PRN Reason Stop Dose Admin Acetaminophen 1,000 mg 07/06/17 15:15 07/07/17 03:01 Ofirmev Injection - IVPB 1,000 mg Q6H ZULEMA Administration Finasteride 5 mg 07/05/17 16:45 07/06/17 09:23 Proscar - PO 5 mg DAILY ZULEMA Administration Dextrose/Sodium Chloride 1,000 mls @ 125 mls/hr 07/05/17 19:30 07/06/17 21:58 D5-1/2ns - IV Not Given ASDIR ZULEMA Ibuprofen 800 mg 07/05/17 08:47 07/05/17 09:10 Caldolor Injection - IVPB 800 mg Q8H PRN Administration PAIN OR FEVER Phenazopyridine HCl 100 mg 07/05/17 20:15 07/07/17 05:19 Pyridium - PO 100 mg TID ZULEMA Administration Solifenacin 5 mg 07/05/17 20:15 07/06/17 09:24 Vesicare - PO 5 mg DAILY ZULEMA Administration Tamsulosin HCl 0.4 mg 07/06/17 08:30 07/06/17 09:24 Flomax - PO 0.4 mg DAILY@0830 ZULEMA Administration Last Vital Signs Temp Pulse Resp BP Pulse Ox 98.4 F 60 12 137/62 96 07/07/17 06:00 07/07/17 07:55 07/07/17 07:55 07/07/17 07:55 07/07/17 07:50 General NAD CV S1 S2 RRR no murmur/rub/gallop Lungs CTA B/L no wheezing/rales/rhonchi Abdomen soft NT/ND no suprapubic tenderness Extremities no pedal edema CBCD WBC 7.8 K/mm3 (4.0-10.0) D 07/07/17 07:06 RBC 3.29 M/mm3 (4.00-5.60) L 07/07/17 07:06 Hgb 9.9 GM/dL (11.7-16.9) L 07/07/17 07:06 Hct 29.5 % (35.4-49) L 07/07/17 07:06 MCV 89.6 fl (80-96) 07/07/17 07:06 MCHC 33.5 g/dl (32.0-35.9) 07/07/17 07:06 RDW 14.6 % (11.9-15.9) 07/07/17 07:06 Plt Count 89 K/MM3 (134-434) L D 07/07/17 07:06 MPV 11.6 fl (7.5-11.1) H 07/07/17 07:06 CMP Sodium 141 mmol/L (136-145) 07/07/17 05:35 Potassium 3.7 mmol/L (3.5-5.1) 07/07/17 05:35 Chloride 100 mmol/L (98-107) 07/07/17 05:35 Carbon Dioxide 32 mmol/L (21-32) 07/07/17 05:35 Anion Gap 9 (8-16) 07/07/17 05:35 BUN 17 mg/dL (7-18) D 07/07/17 05:35 Creatinine 1.0 mg/dL (0.7-1.3) D 07/07/17 05:35 Creat Clearance w eGFR 45.14 (>60) 07/05/17 20:10 Calcium 8.5 mg/dL (8.5-10.1) 07/07/17 05:35 Total Bilirubin 0.7 mg/dL (0.2-1.0) 07/05/17 20:10 AST 14 U/L (15-37) L 07/05/17 20:10 ALT 18 U/L (12-78) 07/05/17 20:10 Alkaline Phosphatase 85 U/L (45-117) 07/05/17 20:10 Total Protein 5.9 g/dl (6.4-8.2) L 07/05/17 20:10 Albumin 3.3 g/dl (3.4-5.0) L 07/05/17 20:10 77 y/o male with bladder CA, BPH, HTN and HLD presented to the hospital for elective TURP with [employer] called on the floor due to unresponsiveness and concern for loss of pulse and code 99 initiated however terminated quickly as pt regained consciousness 1. LOC- likely vasovagal syncope in setting of pain and urinary urgency. no repeated episodes. no events noted on fur floor worker. carotid dopplers done, awaiting read. echo pending for saturday. cardio on board 2. Acute blood loss anemia-continues to have veronica hematuria and blood clots. trend down in Hgb. will cont to trend. Dr Smith aware of persistent hematuria with clotting and will come to evaluate. will repeat hgb today. no indication for txn at this time 3. DANA-likley due to procedure vs possible episode of hypotension during event. resolved. if remains stable. will re-start arb 4. HTN- controlled. hold oral antihypertensives at this time. will re-start if needed to control 5. bladder ca s/p TURP- continues to have significant hematuria and clotting, cont CBI. management per urology. on flomax, proscar, phenazopyridine 6. DVT ppx- hold in setting of bleeding Visit type - Emergency Visit Emergency Visit: No - New Patient This patient is new to me today: No - Critical Care Critical Care patient: Yes Total Critical Care Time (in minutes): 36 Critical Care Statement: The care of this patient involved high complexity decision making to prevent further life threatening deterioration of the patient 's condition and/or to evaluate & treat vital organ system(s) failure or risk of failure. - Discharge Referral Referred to [facility] No
[2017-07-07] MEDS ORDERED: PT OWN MED DRAWER 7, Y5N ONE (08:36)
[2017-07-07] MEDS: TAMSULOSIN HCL 0.4 MG CAP.ER.24H (FP) PO SCH (08:55)
[2017-07-07] MEDS: FINASTERIDE 5 MG TABLET (FP) PO SCH (09:01)
[2017-07-07] MEDS: SOLIFENACIN SUCCINATE 5 MG TAB (FP) PO SCH (09:01)
--- NOTE | 2017-07-07 10:11 | PN ---
Progress Note (short form) - Note Progress Note: Patient seen and examined in the ICU. Awake and alert. Mckenna required flushing 3 times overnight due to retained clots. No CP or SOB. Intake & Output 07/04/17 07/05/17 07/06/17 07/07/17 23:59 23:59 23:59 23:59 Intake Total 70362 81007 43126 Output Total 88417 85744 77657 Balance 1625 -975 900 Weight 160 lb Last Vital Signs Temp Pulse Resp BP Pulse Ox 98.4 F 60 12 137/62 96 07/07/17 06:00 07/07/17 07:55 07/07/17 07:55 07/07/17 07:55 07/07/17 07:50 Active Medications Acetaminophen (Ofirmev Injection -) 1,000 mg IVPB Q6H [facility] Last Admin: 07/07/17 08:55 Dose: Not Given Finasteride (Proscar -) 5 mg PO DAILY [facility] Last Admin: 07/07/17 09:01 Dose: 5 mg Dextrose/Sodium Chloride (D5-1/2ns -) 1,000 mls @ 125 mls/hr IV ASDIR [facility] Last Admin: 07/06/17 21:58 Dose: Not Given Ibuprofen (Caldolor Injection -) 800 mg IVPB Q8H PRN PRN Reason: PAIN OR FEVER Last Admin: 07/05/17 09:10 Dose: 800 mg Phenazopyridine HCl (Pyridium -) 100 mg PO TID [facility] Last Admin: 07/07/17 05:19 Dose: 100 mg Solifenacin (Vesicare -) 5 mg PO DAILY [facility] Last Admin: 07/07/17 09:01 Dose: 5 mg Tamsulosin HCl (Flomax -) 0.4 mg PO DAILY@0830 [facility] Last Admin: 07/07/17 08:55 Dose: 0.4 mg Constitutional: Yes: Awake and alert, NAD Eyes: Yes: WNL HENT: Yes: WNL Neck: Yes: WNL Cardiovascular: Yes: WNL Respiratory: Yes: WNL Gastrointestinal: Yes: WNL Musculoskeletal: Yes: WNL Extremities: Yes: WNL Edema: No Labs: Laboratory Results - last 24 hr 07/07/17 07/07/17 05:35 07:06 WBC 7.8 D RBC 3.29 L Hgb 9.9 L Hct 29.5 L MCV 89.6 MCH 30.0 MCHC 33.5 RDW 14.6 Plt Count 89 L D MPV 11.6 H Sodium 141 Potassium 3.7 Chloride 100 Carbon Dioxide 32 Anion Gap 9 BUN 17 D Creatinine 1.0 D Random Glucose 89 D Calcium 8.5 Problem List - Problems (1) Syncope Code(s): R55 - SYNCOPE AND COLLAPSE (2) HTN (hypertension) Code(s): I10 - ESSENTIAL (PRIMARY) HYPERTENSION (3) BPH (benign prostatic hyperplasia) Code(s): N40.0 - BENIGN PROSTATIC HYPERPLASIA WITHOUT LOWER URINRY TRACT SYMP (4) Bladder cancer Code(s): C67.9 - MALIGNANT NEOPLASM OF BLADDER, UNSPECIFIED (5) Hematuria Code(s): R31.9 - HEMATURIA, UNSPECIFIED Assessment/Plan Bladder CA Hematuria BPH HTN HLD Syncope --> ?vaso-vagal OOB to chair Andres/CBI per PO as tolerated SCDs Dr Orozco
--- NOTE | 2017-07-07 12:52 | PN ---
Progress Note (short form) - Note Progress Note: Afebrile, VSS urine is blood tinged on CBI but improved. He has had his cath irrigated a few times. abd soft Hct 30 Imp- S/P TURBT post operative hematuria. trial of void today serial CBC
[2017-07-07 13:18] LABS: MCH 29.6 pg (25.7-33.7); MCHC 32.9 g/dl (32.0-35.9); MEAN CELL VOLUME 90.1 fl (80-96); MEAN PLT VOLUME 11.4 fl (7.5-11.1); PLATELET COUNT 115 K/MM3 (134-434); RDW 14.4 % (11.9-15.9); WHITE BLOOD COUNT 11.1 K/mm3 (4.0-10.0)
--- NOTE | 2017-07-07 14:08 | PN ---
Progress Note (short form) - Note Progress Note: 77 old male with H/O vasovagal syncope related to severe hypogastric pain and spasms found to urinary obstruction due to blood clot.Known case of hypertension and hypercholesterolemia.No H/O of palpitations,SOB,dizziness or syncope.Andres was removed and discharged is being planned provided his able to micturate. Active Medications Generic Name Dose Route Start Last Admin Trade Name Freq PRN Reason Stop Dose Admin Acetaminophen 1,000 mg 07/06/17 15:15 07/07/17 08:55 Ofirmev Injection - IVPB Not Given Q6H ZULEMA Finasteride 5 mg 07/05/17 16:45 07/07/17 09:01 Proscar - PO 5 mg DAILY ZULEMA Administration Dextrose/Sodium Chloride 1,000 mls @ 125 mls/hr 07/05/17 19:30 07/06/17 21:58 D5-1/2ns - IV Not Given ASDIR ZULEMA Ibuprofen 800 mg 07/05/17 08:47 07/05/17 09:10 Caldolor Injection - IVPB 800 mg Q8H PRN Administration PAIN OR FEVER Phenazopyridine HCl 100 mg 07/05/17 20:15 07/07/17 05:19 Pyridium - PO 100 mg TID ZULEMA Administration Solifenacin 5 mg 07/05/17 20:15 07/07/17 09:01 Vesicare - PO 5 mg DAILY ZULEMA Administration Tamsulosin HCl 0.4 mg 07/06/17 08:30 07/07/17 08:55 Flomax - PO 0.4 mg DAILY@0830 ZULEMA Administration O:77 year old male was no acute distress,no pallor,cyanosis or jaundice. Vital Signs - 8 hr 07/07/17 07/07/17 07/07/17 06:00 07:50 07:55 Temperature 98.4 F Pulse Rate 62 60 Respiratory 16 16 12 Rate Blood Pressure 134/64 137/62 O2 Sat by Pulse 96 Oximetry (%) 07/07/17 07/07/17 10:00 12:02 Temperature 98.1 F Pulse Rate 65 68 Respiratory 11 L 11 L Rate Blood Pressure 154/63 132/62 O2 Sat by Pulse Oximetry (%) NECK:Supple,no JVD,carotids are 2+ and equal,no bruits. HEART:PMI was in 5th ICS,no heaves or thrills.S1 & S2 were normal.No murmur or gallops heard. LUNGS:Clear on auscultation. ABDOMEN:Soft nontender,no organomegaly,mild distension of the urinary bladder. EXTREMITIES:No calf tenderness or calf tenderness. CBC, BMP 07/07/17 13:13 07/07/17 05:35 A: 1.Syncope secondary to vasovagal response related to severe pain. 2.Recent bladder tumor resection with post op. bleeding. 3.H/O of hypertension. 4.Hypercholesterolemia. 5.Anemia. 6.Thrombcytopenia P: 1.Patient was told to monitor BP at home and if elevated to resume Lisinopril. 2.Must have F/U CBC on outpatient basis.
[2017-07-07 18:11] VITALS: BP 137/70; PULSE 88; TEMP 98.3
--- NOTE | 2017-07-08 16:33 | PATH ---
Surgical Pathology Report Patient Name: ROE MÁRQUEZ [facility]. Rec. #: [id number] /Age/Gender: 1940 (Age: 77) / M Account: [id number] Location: ICU PEDIATRIC HOSPITALIST Taken: 07/05/2017 Received: 07/05/2017 Reported: 07/08/2017 Physicians: Claudy Becerra M.D. Specimen(s) Received BLADDER TUMOR Clinical History Bladder tumor Final Diagnosis BLADDER, TUMOR, TUR: NON-INVASIVE LOW GRADE PAPILLARY UROTHELIAL CARCINOMA. LAMINA PROPRIA INVASION: NOT IDENTIFIED. MUSCULARIS PROPRIA (DETRUSOR): PRESENT, FREE OF CARCINOMA. CARCINOMA IN SITU (CIS): NOT IDENTIFIED. Electronically Signed Sekou Lowry M.D. Gross Description Received in formalin labeled "bladder tumor" is a 2.3 x 2.2 x 0.3 cm aggregate of grimm soft tissue fragments. The formalin is filtered and the specimen is entirely submitted in one cassette. 07/05/201707/05/2017
== END 2017-07-07 18:56 | disposition home or self-care (01) | DRG 669 ==
LOC: JASU-SURG 06:34 → J8W 16:30 → JICU 19:30 → JASU-SURG 07-06 10:58 → JICU 07-06 10:58
PROVIDERS: ADMIT Urology; ATTEND Urology
PROC: 0TJB8ZZ Inspection of Bladder, Via Natural or Artificial Opening Endoscopic (ICD-10-PCS; 2017-07-05)
PROC: 0TBB8ZZ Excision of Bladder, Via Natural or Artificial Opening Endoscopic (ICD-10-PCS; principal; 2017-07-05 08:00)
DX: C67.9 Malignant neoplasm of bladder, unspecified (principal); D62 Acute posthemorrhagic anemia; N17.9 Acute kidney failure, unspecified; E87.1 Hypo-osmolality and hyponatremia; R55 Syncope and collapse; I10 Essential (primary) hypertension; D69.6 Thrombocytopenia, unspecified; N40.0 Benign prostatic hyperplasia without lower urinary tract symptoms; R31.0 Gross hematuria; E78.5 Hyperlipidemia, unspecified; R00.0 Tachycardia, unspecified; D72.829 Elevated white blood cell count, unspecified
CPT/HCPCS: 36415; 80048; 80053; 84484; 85025; 85027; 88307-TC; 93005; 93010; 93880-TC; 94760